=== PATIENT | female | born 1985 | race American Indian/Alaskan Native ===

== ENCOUNTER 2017-03-08 10:54 | Observation (INO) ==
[2017-03-08] MEDS ORDERED: HYDROCODONE/APAP 7.5/325MG TABLET PO ONE (11:16)
[2017-03-08] MEDS ORDERED: cefTRIAXone 1 GM VIAL IV ONE (11:20)
--- NOTE | 2017-03-08 11:52 | XRay Report ---
HISTORY: Reason for Exam:swelling, redness, edema, x 5-6 weeks FINDINGS: No fracture or dislocation are present. The bones are normally mineralized and there is no bone erosion or periosteal elevation. Tiny spur is present on the plantar surface of the calcaneus. No other degenerative change is present. There has been no significant change since 07/09/16. IMPRESSION: Normal exam Interpreted and Authenticated by: Jimmy Lucas 03/08/17
[2017-03-08 11:58] LABS: Basophils # (Auto) 0 K/mcL (0.0-0.3); Basophils % (Auto) 0.2 % (0.0-2.0); Eosinophils # (Auto) 0.4 K/mcL (0.0-0.7); Eosinophils % (Auto) 2.9 % (0.0-7.0); Granulocytes % (Auto) 82.7 % (38.0-78.0); Lymphocytes # (Auto) 1.6 K/mcL (1.5-4.8); Mean Corpuscular HGB Conc 33.7 g/dL (31.0-36.0); Mean Corpuscular Hemoglobin 28.3 pg (26.0-34.0); Monocytes # (Auto) 0.5 K/mcL (0.1-0.9); Monocytes % (Auto) 3.2 % (1.0-12.0); Platelet Count 412 K/mcL (140-440); RBC 5.15 M/mcL (4.00-5.20); Red Cell Distribution Width 14.4 % (11.5-14.5)
[2017-03-08] MEDS: 0.9 % SODIUM CHLORIDE 1,000 ML IV SCH ×3 (12:06→17:00)
[2017-03-08 12:17] LABS: ALT/SGPT 15 U/l (0-40); Albumin 4.3 gm/dL (3.2-5.2); Albumin/Globulin Ratio 1.1 (1.0-2.3); Alkaline Phosphatase 121 U/L (39-117); Blood Urea Nitrogen 7 mg/dl (6-20)
--- NOTE | 2017-03-08 12:35 | Emergency Department Note ---
General Adult HPI - General Chief complaint: Skin/Abscess/Foreign Body Stated complaint: L ankle cellulitis, L ear pain Time Seen by Provider: 03/08/17 11:12 Source: patient Mode of arrival: ambulatory - History of Present Illness HPI Narrative: 32-year-old female presents with wound to the left foot and ankle. This is been going on for over 5 weeks. She has been seeing wound care and is getting worse and wound care wanted her to sent over to the ER and evaluated here today. States that it started over a month ago with blisterlike appearances to the left ankle and leg. Denies being diabetic. Denies any trauma or injury or insect bites. Has no idea how it got there. It has progressively gotten worse over the last several weeks. However the last 5-7 days it has been much worse. She also reports fever and chills over the last 5 days. Positive nausea. No vomiting or diarrhea. She did start taking doxycycline yesterday with no improvement. States it is worse today. States it is very painful and swollen. States is continuing to spread and redness, swelling, and size of the wound. She has been going to wound care once a week since we referred her the first week of February. - Related Data Home Medications Medication Instructions Recorded Confirmed Doxycycline Monohydrate [Mondoxyne 100 mg PO BID 03/08/17 03/08/17 ] predniSONE [Prednisone] 5 mg PO DAILY 03/08/17 03/08/17 Allergies Allergy/AdvReac Type Severity Reaction Status Date / Time Latex, Natural Rubber Allergy Intermediate Hives Verified 03/08/17 11:00 Sulfa (Sulfonamide Allergy Intermediate Hives Verified 03/08/17 11:00 Antibiotics) Review of Systems All systems ED: reviewed and negative except as stated. Past Medical History - Past Medical History Medical history: Reports: other (Cellulitis the right foot) Surgical history ED: Reports: no surgical history - Social History smoking status: Never smoker Alcohol use: Reports: Rarely Drug use: Reports: none Physical Exam Limitations: no limitations General appearance: alert, in no apparent distress Head: atraumatic, normocephalic, normal inspection Eye: Present: normal appearance. Absent: conjunctival injection ENT: mucous membranes moist Chest: Present: normal inspection, symmetric chest wall rise Respiratory: Present: normal lung sounds bilaterally. Absent: respiratory distress, wheezes, accessory muscle use Cardiovascular: Present: regular rate, normal heart sounds Extremities: Present: full ROM, tenderness (Tender over the wound to the left foot and ankle. No other tenderness. No other rashes or lesions. The left foot does have significant edema compared to the right. There is also redness and warmth. Cap refill is immediate.). Absent: normal inspection (Wound to the left foot and ankle. Please see skin assessment.), calf tenderness Neurological: Present: alert, oriented X3, motor sensory deficit (Sensation intact to lower extremities bilaterally) Psychiatric: Present: normal affect, normal mood, other (She is tearful and frustrated and does not understand why it is not getting better. Also tearful and states she is tired of it getting worse and hurting) Skin: Present: warm, dry. Absent: intact (The left ankle has a 6 cm x 12 cm stage II ulcer. The redness extends 4-6 cm in all directions. Warm. Cap refill immediate. Sensation intact. Very tender. The left ankle is significantly swollen compared to the right. There are no other rashes or lesions throughout.) Course Course Narrative: Pictures of the wound were taken by wound care today and submitted to the chart. Please see pictures Vital Signs Temperature 97.4 F 03/08/17 10:55 Pulse Rate 67 03/08/17 10:55 Respiratory Rate 16 03/08/17 10:55 Blood Pressure 116/77 03/08/17 10:55 Pulse Oximetry (%) 97 03/08/17 10:55 Temperature 97.4 F 03/08/17 10:55 Pulse Rate 58 L 03/08/17 12:50 Respiratory Rate 16 03/08/17 12:50 Blood Pressure 123/77 03/08/17 12:50 Pulse Oximetry (%) 99 03/08/17 12:50 Medical Decision Making - MDM Narrative Medical decision making narrative: At [address] did speak with Dr[address] jayne marmolejo and wound care. He suggested we talk to the hospitalist as he does not feel there is anything further he can do at this point but would be happy to consult. I did speak with Dr. Lo the hospitalist on today. He is agreeable to seeking care for the patient. She will need IV antibiotics and probable admit. - Lab Data Lab results reviewed: Yes I reviewed the patient's lab results. Result diagrams: 03/08/17 11:38 03/08/17 11:38 Lab Results 03/08/17 03/08/17 03/08/17 Range/Units 11:38 11:38 11:38 WBC 14.4 H (4.5-11.0) K/mcL RBC 5.15 (4.00-5.20) M/mcL Hgb 14.6 (12.0-15.0) g/dL Hct 43.3 (36.0-48.0) % MCV 84.0 (80.0-100.0) fL MCH 28.3 (26.0-34.0) pg MCHC 33.7 (31.0-36.0) g/dL RDW 14.4 (11.5-14.5) % Plt Count 412 (140-440) K/mcL MPV 7.1 L (7.4-10.4) fL Gran % 82.7 H (38.0-78.0) % Lymph % (Auto) 11.0 L (15.5-49.0) % Russell % (Auto) 3.2 (1.0-12.0) % Eos % (Auto) 2.9 (0.0-7.0) % Baso % (Auto) 0.2 (0.0-2.0) % Gran # 11.9 H (1.8-8.0) K/mcL Lymph # (Auto) 1.6 (1.5-4.8) K/mcL Russell # (Auto) 0.5 (0.1-0.9) K/mcL Eos # (Auto) 0.4 (0.0-0.7) K/mcL Baso # (Auto) 0 (0.0-0.3) K/mcL VBG Lactic Acid 0.8 (0.5-2.2) mmol/L Sodium 138 (133-145) mmol/L Potassium 4.0 (3.3-5.1) mmol/L Chloride 101 (96-108) mmol/L Carbon Dioxide 24 (22-30) mmol/L Anion Gap 13.0 (8-16) BUN 7 (6-20) mg/dl Creatinine 0.8 (0.6-1.1) mg/dl GFR Calculation 98 Glucose 90 (70-105) mg/dL Calcium 9.0 (8.6-10.4) mg/dl Total Bilirubin 0.4 (0.0-1.0) mg/dL AST 21 (0-37) U/l ALT 15 (0-40) U/l Alkaline Phosphatase 121 H (39-117) U/L Total Protein 8.2 (5.9-8.4) gm/dL Albumin 4.3 (3.2-5.2) gm/dL Globulin 3.9 H (2.2-3.7) gm/dL Albumin/Globulin Ratio 1.1 (1.0-2.3) - Radiology Data Radiology results reviewed: Yes I reviewed the patient's radiology results. Disposition Pt seen by KILN BURNER/PA only: Yes Clinical Impression: Wound infection, Cellulitis Disposition: Xfer As Inpt ([facility]) Condition: Fair Referrals: Kaelyn Du [Primary Care Provider] - Uvaldo Mak MD [Physician] - Time of Disposition: 13:20
[2017-03-08] MEDS ORDERED: PIPERACILLIN SODIUM/TAZOBACTAM 3.375 GM in DEXTROSE 5% IN WATER 50 ML IV ONE (13:02)
[2017-03-08] MEDS ORDERED: PIPERACILLIN SODIUM/TAZOBACTAM 3.375 GM VIAL IV ONE (13:17)
[2017-03-08] MEDS ORDERED: DEXTROSE 5% IN WATER 100 ML IV ONE (13:19)
[2017-03-08] MEDS ORDERED: VANCOMYCIN 1,500 MG in 0.9 % SODIUM CHLORIDE 500 ML IV ONE (13:50)
[2017-03-08] MEDS: VANCOMYCIN PER PHARMACY IV ONE ×2 (14:15)
--- NOTE | 2017-03-08 14:34 | History and Physical Report ---
DATE OF ADMISSION: 03/08/2017 REASON FOR ADMISSION: Left foot and ankle swelling, pain, nonhealing ulcer, discharge. HISTORY OF CHIEF COMPLAINT: The patient is a 32-year-old who comes in to [facility] ER after being directed from the wound care service for what started as a blister on the lateral aspect of left ankle, likely secondary to a shoe blister and subsequently started spreading in all directions. She was seen at the wound care clinic and subsequently dressings did not improve and kept progressing. She was started on doxycycline yesterday. However, due to increasing leg pain, swelling, redness, and fever she came to the ER. Initial white count was over 14,000. However, foot x-ray did not show evidence of osteomyelitis. The patient was started on vancomycin and Rocephin, subsequently Hospitalist Service was consulted. At the time of evaluation, the patient is alert and oriented. She was able to provide answers to most of the questions. She denies recent trauma except for foot shoe blister around [place], a month ago. 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 She denies STD. She denies substance abuse or injection drug use. She denies smoking. She further denies chest palpitation, headache, joint pain, rash, arthralgia, groin pain, or dysuria. REVIEW OF SYSTEMS: A ten-point review of system was performed and negative except the ones discussed above. PAST MEDICAL HISTORY: None significant. CURRENT MEDICATIONS: Doxycycline 100 mg b.i.d. ALLERGIES: 1. LATEX. 2. SULFA. SOCIAL HISTORY: She is , has kids. Lives at [place]. No history of smoking or alcohol or substance abuse. FAMILY HISTORY: None relevant to presenting symptoms. PHYSICAL EXAMINATION: GENERAL: The patient is nondistressed, alert and oriented. VITAL SIGNS: Blood pressure 116/77, respiration rate 16, temperature 97.4, pulse 67, sats 97% on room air. HEENT: Pupils symmetric. Oral cavity is dry. No ear or nose discharge. Head is normocephalic and atraumatic. NECK: No lymphadenopathy. CHEST: S1, S2, regular rhythm. Chest clear to auscultation bilaterally. ABDOMEN: Soft and nontender. LOWER EXTREMITIES: Left lower extremity lateral aspect on lateral malleolus extensive ulceration along with necrotic tissue, purulent discharge, but no fluctuance extending 4 cm above the lateral malleolus and then 3 cm on the dorsum of the foot. Otherwise skin has no suspicious lesion. Normal range of motion of the joints with no joint swelling or erythema. PSYCH: Alert and cooperative, mild anxiety. NEUROLOGIC: Nonfocal, moving all four extremities. LABS AND IMAGING: White count 14.4, hemoglobin 14.6, platelets 412. Lactic acid 0.8. Sodium 138, potassium 4, creatinine 0.8, BUN 7. LFTs unremarkable. X-ray left ankle/foot: Negative, normal exam. ASSESSMENT AND PLAN: A 32- year-old admitted with left leg cellulitis involving ankle and dorsum. 1. Left ankle cellulitis. Start antibiotic coverage on Zosyn and vancomycin given history of MRSA. Wound cultures, blood cultures pending. Continue NSAID and antipyretics for inflammation of left leg. 2. Nonhealing ulcer, unclear etiology. However, likely secondary to superinfection after shoe blister. Continue wound care. Consult wound physician, Dr. Mak. PLAN: 1. Admit as observation. 2. Antibiotic coverage. 3. Continue wound care. 4. Schedule outpatient IV antibiotics for at least 10 days to ensure adequate healing, along with wound care followup as an outpatient. AA:beck Job ID: [id number] Doc ID: [id number] Sonu Shields MD
[2017-03-08] MEDS ORDERED: VANCOMYCIN PER PHARMACY IV SCH (15:41)
[2017-03-08] MEDS ORDERED: traZODone HCL 50 MG TABLET PO PRN (15:41)
[2017-03-08] MEDS ORDERED: POTASSIUM CHLORIDE 20 MEQ PACKET PO PRN (15:41)
[2017-03-08] MEDS ORDERED: ACETAMINOPHEN 1,000 MG/100 ML BOTTLE IV PRN (15:41)
[2017-03-08] MEDS ORDERED: ONDANSETRON 4 MG/2 ML VIAL IV PRN (15:41)
[2017-03-08] MEDS ORDERED: MAGNESIUM SULFATE 2 GM/50 ML BAG IV PRN (15:41)
[2017-03-08] MEDS: 0.9 % SODIUM CHLORIDE 10 ML SYRINGE IV SCH ×2 (15:43→20:45)
[2017-03-08] MEDS: PIPERACILLIN SODIUM/TAZOBACTAM 3.375 GM in DEXTROSE 5% IN WATER 50 ML IV SCH ×2 (18:34→23:27)
[2017-03-08] MEDS: DOCUSATE SODIUM 100 MG CAPSULE PO SCH (20:45)
[2017-03-08] MEDS: SENNOSIDES/DOCUSATE SODIUM 1 TAB TABLET PO SCH (20:45)
[2017-03-08] MEDS: HEPARIN 5,000 UNIT/ML VIAL SQ SCH (20:45)
[2017-03-08] MEDS: ACETAMINOPHEN 325 MG TABLET PO PRN (23:27)
[2017-03-08] MEDS: VANCOMYCIN 1,500 MG in 0.9 % SODIUM CHLORIDE 500 ML IV SCH (23:28)
[2017-03-09] MEDS: ACETAMINOPHEN 325 MG TABLET PO PRN ×4 (04:34→21:54)
[2017-03-09] MEDS: PIPERACILLIN SODIUM/TAZOBACTAM 3.375 GM in DEXTROSE 5% IN WATER 50 ML IV SCH ×3 (05:42→18:00)
[2017-03-09] MEDS: 0.9 % SODIUM CHLORIDE 10 ML SYRINGE IV SCH ×4 (05:43→21:01)
[2017-03-09 06:32] LABS: Mean Cell Volume 85.2 fL (80.0-100.0); Mean Corpuscular HGB Conc 33.7 g/dL (31.0-36.0); Mean Corpuscular Hemoglobin 28.7 pg (26.0-34.0); Platelet Count 366 K/mcL (140-440); RBC 4.27 M/mcL (4.00-5.20); Red Cell Distribution Width 13.9 % (11.5-14.5)
[2017-03-09 07:28] LABS: ALT/SGPT 12 U/l (0-40); Albumin 3.5 gm/dL (3.2-5.2); Albumin/Globulin Ratio 1.2 (1.0-2.3); Alkaline Phosphatase 101 U/L (39-117); Band Neutrophils % 1 % (0-10); Bilirubin,Direct < 0.2 mg/dL (0.0-0.3); Blood Urea Nitrogen 6 mg/dl (6-20); Eosinophils % (Manual) 4 % (0-7); Gamma Glutamyl Transpeptidase 23 U/L (5-36); Lymphocytes % 38 % (15-49); Monocytes % (Manual) 5 % (1-12); Platelet Estimate NORMAL (NORMAL); RBC Morphology NORMAL (NORMAL); Segmented Neutrophils % 52 % (38-78); Uric Acid 2.9 mg/dL (2.5-8.0)
--- NOTE | 2017-03-09 08:03 | Internal Med Progress Note ---
Medical - PN: Subj Patient information: Note initiated : 03/09/17 at 8:01 am Service Date, if different from initiated Date: [] Patient: Anna Lizarraga 32 y/o F admitted on 03/08/17 for L ankle cellulitis, L ear pain. Chief Complaint: [] Interval history: 03/08-Patient admitted with left ankle nonhealing ulcer and failed outpatient treatment with cellulitis spreading up to upper leg. White count 14.4. Worsening over the last 1 month. Started on broad antibiotic coverage. Admitted as observation. -clinically improving with downtrending white count and pain along with fever. Continue antibiotic coverage.Gram stain was revealed gram-positive cocci in pairs and chains. No overnight fever chills or concerns per nursing staff. Stable labs and hemodynamics. on Zosyn and vancomycin. Consult wound care - Constitutional Vitals: Vital Signs Temp Pulse Resp BP Pulse Ox 98.2 F 53 L 16 114/76 95 03/09/17 07:13 03/09/17 04:00 03/09/17 07:13 03/09/17 07:13 03/09/17 07:13 Period Temp Pulse Resp BP Sys/Chaudhry Pulse Ox Last 24 Hr 97.4 F-98.2 F 53-78 14-18 102-123/52-77 95-99 Intake and Output 03/08/17 03/09/17 03/09/17 21:59 05:59 13:59 Intake Total 2069 / 0 1704 / 1704 Output Total 450 / 450 1150 / 1150 Balance 1620 / 1620 554 / 554 Weight 199 lb 6.4 oz Intake & Output: Intake & Output 03/08/17 03/09/17 03/09/17 21:59 05:59 13:59 Intake Total 0 / 0 1704 / 1704 Output Total 450 / 450 1150 / 1150 Balance 1620 / 1620 554 / 554 Weight 199 lb 6.4 oz Intake: IV 650 / 650 1064 / 1064 Sodium Chloride 0.9% 1,000 ml @ 514 / 514 50 mls/hr IV .Q20H [facility] Rx#: [id number] Zosyn 3.375 gm In Dextrose 5% 50 / 50 50 / 50 in Water 50 ml @ 100 mls/hr IV Q6H [facility] Rx#:[id number] Vancomycin 1,500 mg In Sodium 500 / 500 500 / 500 Chloride 0.9% 500 ml @ 333.3 mls/hr IV Q12H [facility] Rx#: [id number] Oral 1420 / 1420 640 / 640 Output: Void Amount 450 / 450 1150 / 1150 Other: Meal Dinner Percent of Meal Consumed 100% Feeding Ability Independent # Voids 1 # Bowel Movements 1 General appearance: cooperative, no acute distress Exam: esting comfortably nonlabored breathing Nondistended abdomen Wound dressing left ankle Lower extremity lymphedema/erythema left side much improved Medical - PN: Obj Da - Labs CBC & Chem 7: 03/09/17 04:52 03/09/17 04:52 Labs: Abnormal Lab Results 03/09/17 03/09/17 03/08/17 04:52 04:52 11:49 WBC MPV 7.1 L Gran % Lymph % (Auto) Gran # ESR Calcium 8.0 L Alkaline Phosphatase C-Reactive Protein 2.0 H Globulin 03/08/17 03/08/17 03/08/17 11:49 11:38 11:38 WBC 14.4 H MPV 7.1 L Gran % 82.7 H Lymph % (Auto) 11.0 L Gran # 11.9 H ESR 32 H Calcium Alkaline Phosphatase 121 H C-Reactive Protein Globulin 3.9 H Meds: Medications Acetaminophen (Tylenol) 650 mg PO Q4-6HP PRN PRN Reason: PAIN/FEVER > 101 Last Admin: 03/09/17 04:34 Dose: 650 mg Docusate Sodium (Colace) 100 mg PO BID [facility] Last Admin: 03/08/17 20:45 Dose: 100 mg Heparin Sodium (Porcine) (Heparin) 5,000 unit SQ Q12 [facility] Last Admin: 03/08/17 20:45 Dose: 5,000 unit Magnesium Sulfate (Magnesium Sulfate) 2 gm in 50 mls @ 50 mls/hr IV UD PRN PRN Reason: MG = or < 1.7 Sodium Chloride (Sodium Chloride 0.9%) 1,000 mls @ 50 mls/hr IV .Q20H [facility] Stop: 03/11/17 03:40 Last Infusion: 03/09/17 05:43 Dose: 0 mls/hr Acetaminophen (Ofirmev) 1,000 mg in 100 mls @ 200 mls/hr IV Q6HP PRN PRN Reason: PAIN/FEVER > 101 Last Infusion: 03/08/17 18:15 Dose: Infused Piperacillin Sod/Tazobactam (Sod 3.375 gm/ Dextrose) 50 mls @ 100 mls/hr IV Q6H [facility] Last Admin: 03/09/17 05:42 Dose: 100 mls/hr Vancomycin HCl 1,500 mg/ (Sodium Chloride) 500 mls @ 333.3 mls/hr IV Q12H [facility] Last Infusion: 03/09/17 02:45 Dose: Infused Iron Carb/Multivit/[place]/Folic Acid (Multivitamin W/Minerals) 1 tab PO DAILY [facility] Ondansetron HCl (Zofran) 4 mg IV Q4-6HP PRN PRN Reason: Nausea And Vomiting Potassium Chloride (Klor-Con) 40 meq PO DAILYP PRN PRN Reason: K+ < 3.5 Senna/Docusate Sodium (Senna Plus Tablet) 1 tab PO HS [facility] Last Admin: 03/08/17 20:45 Dose: 1 tab Sodium Chloride (Saline Flush) 10 ml IV Q8 [facility] Last Admin: 03/09/17 05:43 Dose: Not Given Trazodone HCl (Desyrel) 50 mg PO HSP PRN PRN Reason: Insomnia Vancomycin HCl (Vancomycin Per Pharmacy) 1 order IV UD [facility] Medical - PN: A/P - Time Spent With Patient Total time spent is greater than 50% in coordination of care (as documented) at patient's floor/unit and/or counseling patient: 25 - 35 minutes - Narrative A/P Narrative: [id number] with left ankle nonhealing ulcer/cellulitiswith associated fever or leukocytosis and early sepsis * left lower extremity cellulitis/nonhealing ulcer-broad antibiotic coverage including Zosyn and vancomycin. Cultures revealed gram-positive cocci.failed outpatient treatment. consult wound care * pain management on as needed Tylenol * DVT prophylaxis on heparin plan * Wound care * Antibiotics * possible discharge in 24 hours if clinically improved * schedule outpatient antibiotics for additional 10 days along with outpatient wound care/dressings on discharge
[2017-03-09] MEDS: DOCUSATE SODIUM 100 MG CAPSULE PO SCH ×2 (09:06→21:01)
[2017-03-09] MEDS: HEPARIN 5,000 UNIT/ML VIAL SQ SCH ×2 (09:06→21:01)
[2017-03-09] MEDS: MULTIVIT,THER IRON,CA,FA & MIN 1 TABLET PO SCH (09:06)
[2017-03-09] MEDS: VANCOMYCIN 1,500 MG in 0.9 % SODIUM CHLORIDE 500 ML IV SCH ×2 (09:07→21:02)
[2017-03-09] MEDS: 0.9 % SODIUM CHLORIDE 1,000 ML IV SCH (11:40)
--- NOTE | 2017-03-09 17:28 | General Surgery Consult Note ---
History of Present Illness Patient information: Note initiated : 03/09/17 at 5:18 pm Service Date, if different from initiated Date: [] Patient: Anna Lizarraga 32 y/o F admitted on 03/08/17 for Left Ankle Cellulitis , Left Ear Pain. Chief Complaint: [] Consult date: 03/09/17 Requesting physician: Sonu Shields (Wound Care. Ulcer Left lower medial foot) History of present illness: I saw the chart and examined patient along with nurse and patient's mother in the room. I had referred her to the ER from wound care clinic due to deterioration of left lower foot and ankle skin lesion. During this visit there was exfoliation of skin, blisters ruptured and clinical signs of evolving cellulitis CSSSI, possibility of SEPSIS and SIRS. This started as contact dermatitis several weeks or months go, when she initially presented with dermatitis, skin changes discoloration without blisters. She was treated conservatively and recommended a dermatology consult for elucidating etiology and opinion about treatment options. This has NOT happened as yet. Referral was made to Dr. Vo, [facility] in [place], [place]. Yesterday, I called Dr. Vo' office and spoke with his nurse. Waiting to speak with Dr. Vo. In the interim, I referred her to ER for immediate care, work up and IV antibiotics and local wound care. Medications and Allergies Home Medications Medication Instructions Recorded Confirmed Type Doxycycline Monohydrate [Mondoxyne 100 mg PO BID 03/08/17 03/08/17 History Nl] predniSONE [Prednisone] 5 mg PO DAILY 03/08/17 03/08/17 History Allergies Allergy/AdvReac Type Severity Reaction Status Date / Time Latex, Natural Rubber Allergy Intermediate Hives Verified 03/08/17 11:00 nitrofurantoin Allergy Intermediate Hives Verified 03/08/17 20:16 [From Macrobid] Sulfa (Sulfonamide Allergy Intermediate Hives Verified 03/08/17 11:00 Antibiotics) Exam Temp Pulse Resp BP Pulse Ox 98.9 F 53 L 16 112/68 96 03/09/17 15:56 03/09/17 04:00 03/09/17 15:56 03/09/17 15:56 03/09/17 15:56 - General physical appearance well developed, well nourished, no distress, moderate pain - Eyes PERRL, normal ocular movement - ENT normal pinna, normal nares, normal mucosa, no congestion - Head Head exam IM: Present: atraumatic, normal inspection, normocephalic - Neck no masses, no bruits, trachea midline, no venous distension - Cardiovascular Cardiovascular exam IM: Present: normal rate and rhythm - Respiratory normal expansion, normal respiratory effort, clear to auscultation - Abdomen Abdomen: Present: soft, non tender, bowel sounds - Integumentary Present: other (LEFT lower medial heel and ankle skin discoloration, superficial ulceration, satellite blisters, periwound dermatitis and spreading erythema, streaks lymphangitis, vasculitis. Severe pain and tender to touch, NO ODOR, Drainage mainly serous,without lucila purulence.) - Neurologic Present: normal coordination, normal sensation - Musculoskeletal Present: normal gait - Psychiatric Present: oriented to time, oriented to person, oriented to place, speech is normal, memory intact, other (Situational anxiety, frustration and worried about no signs of improvement. ) Results - Labs 03/09/17 04:52 03/09/17 04:52 Abnormal lab results 03/09/17 03/09/17 Range/Units 04:52 04:52 MPV 7.1 L (7.4-10.4) fL Calcium 8.0 L (8.6-10.4) mg/dl Diabetes panel 03/09/17 Range/Units 04:52 Sodium 141 (133-145) mmol/L Potassium 3.9 (3.3-5.1) mmol/L Chloride 106 (96-108) mmol/L Carbon Dioxide 25 (22-30) mmol/L BUN 6 (6-20) mg/dl Creatinine 0.8 (0.6-1.1) mg/dl Glucose 83 (70-105) mg/dL Calcium 8.0 L (8.6-10.4) mg/dl AST 14 (0-37) U/l ALT 12 (0-40) U/l Alkaline Phosphatase 101 (39-117) U/L Total Protein 6.4 (5.9-8.4) gm/dL Albumin 3.5 (3.2-5.2) gm/dL Triglycerides 98 (<150) mg/dl Calcium panel 03/09/17 Range/Units 04:52 Calcium 8.0 L (8.6-10.4) mg/dl Phosphorus 3.4 (2.7-4.5) mg/dL Albumin 3.5 (3.2-5.2) gm/dL Pituitary panel 03/09/17 Range/Units 04:52 Sodium 141 (133-145) mmol/L Potassium 3.9 (3.3-5.1) mmol/L Chloride 106 (96-108) mmol/L Carbon Dioxide 25 (22-30) mmol/L BUN 6 (6-20) mg/dl Creatinine 0.8 (0.6-1.1) mg/dl Glucose 83 (70-105) mg/dL Calcium 8.0 L (8.6-10.4) mg/dl Adrenal panel 03/09/17 Range/Units 04:52 Sodium 141 (133-145) mmol/L Potassium 3.9 (3.3-5.1) mmol/L Chloride 106 (96-108) mmol/L Carbon Dioxide 25 (22-30) mmol/L BUN 6 (6-20) mg/dl Creatinine 0.8 (0.6-1.1) mg/dl Glucose 83 (70-105) mg/dL Calcium 8.0 L (8.6-10.4) mg/dl Total Bilirubin 0.3 (0.0-1.0) mg/dL AST 14 (0-37) U/l ALT 12 (0-40) U/l Alkaline Phosphatase 101 (39-117) U/L Total Protein 6.4 (5.9-8.4) gm/dL Albumin 3.5 (3.2-5.2) gm/dL All other labs normal. Assessment and Plan (1) Sepsis affecting skin Status: Acute Priority: High Comment: CSSSI, Sepsis with PAIN and spreading infection. Started on IV antibiotics and pain meds. Wound cultures GPC pairs and chains Beta hemolytic strep. Blood cultures negative. X Ray Left foot and ankle ; Negative for bone abnormalities , gas in tissue planes. Plan: For now, IV antibitics, MONITOR wound status and make recommendation as condition evolves.
[2017-03-09] MEDS: SENNOSIDES/DOCUSATE SODIUM 1 TAB TABLET PO SCH (21:01)
[2017-03-10] MEDS: PIPERACILLIN SODIUM/TAZOBACTAM 3.375 GM in DEXTROSE 5% IN WATER 50 ML IV SCH ×3 (00:19→13:16)
[2017-03-10] MEDS: 0.9 % SODIUM CHLORIDE 1,000 ML IV SCH (03:26)
[2017-03-10] MEDS: 0.9 % SODIUM CHLORIDE 10 ML SYRINGE IV SCH ×3 (06:05→13:17)
[2017-03-10 06:26] LABS: Mean Cell Volume 85.5 fL (80.0-100.0); Mean Corpuscular HGB Conc 33.7 g/dL (31.0-36.0); Mean Corpuscular Hemoglobin 28.8 pg (26.0-34.0); Platelet Count 377 K/mcL (140-440); RBC 4.35 M/mcL (4.00-5.20); Red Cell Distribution Width 14.3 % (11.5-14.5)
[2017-03-10 07:03] LABS: ALT/SGPT 12 U/l (0-40); Albumin 3.8 gm/dL (3.2-5.2); Albumin/Globulin Ratio 1.3 (1.0-2.3); Alkaline Phosphatase 92 U/L (39-117); Bilirubin,Direct < 0.2 mg/dL (0.0-0.3); Blood Urea Nitrogen 5 mg/dl (6-20); Gamma Glutamyl Transpeptidase 23 U/L (5-36); Uric Acid 2.4 mg/dL (2.5-8.0)
[2017-03-10 08:33] LABS: Eosinophils % (Manual) 8 % (0-7); Lymphocytes % 33 % (15-49); Monocytes % (Manual) 4 % (1-12); Platelet Estimate NORMAL (NORMAL); RBC Morphology NORMAL (NORMAL); Segmented Neutrophils % 49 % (38-78)
[2017-03-10] MEDS: MULTIVIT,THER IRON,CA,FA & MIN 1 TABLET PO SCH (09:07)
[2017-03-10] MEDS: DOCUSATE SODIUM 100 MG CAPSULE PO SCH (09:07)
[2017-03-10] MEDS: HEPARIN 5,000 UNIT/ML VIAL SQ SCH (09:13)
--- NOTE | 2017-03-10 09:24 | General Surgery Progress Note ---
Subjective Patient reports: no new complaints, feels better, pain is less Narrative: Note initiated : 03/10/17 at 9:22 am Service Date, if different from initiated Date: [] Patient: Anna Lizarraga 32 y/o F admitted on 03/08/17 for Left Ankle Cellulitis , Left Ear Pain. Chief Complaint: [] I saw patient for rounds and examined her wound. Usha DUVALcare giver IP nurse, Albin RN and patient's were present in the room. Discussed her progress and plan of care with all and with SIMIN Rai CM. Objective Temp Pulse Resp BP Pulse Ox 97.4 F 55 L 16 118/72 94 03/10/17 03:54 03/10/17 03:54 03/10/17 07:17 03/10/17 07:17 03/10/17 07:17 AVSS. Less anxious. Afebrile. No changes in ALEA. L/E : Wound is drying up and cellulitis inflammatory changes are gradually improving. Labs. WBC normal today. Blood c/s Negative Wound c/s B hemolytic strep AND GPC in pairs, cluster / chain NOT ABLE TO OBTAIN DERMATOLOGY OR ID input during this hospitalization. - Additional Data Intake & Output - Last 24 hours: Intake & Output 03/08/17 03/09/17 03/10/17 03/11/17 05:59 05:59 05:59 05:59 Intake Total 3774 / 3774 3866 / 3866 50 / 50 Output Total 1600 / 1600 2750 / 2750 400 / 400 Balance 2174 / 2174 1116 / 1116 -350 / -350 Weight 199 lb 6.4 oz 199 lb 4.8 oz - Labs 03/10/17 05:00 03/10/17 05:00 Diabetes panel 03/10/17 Range/Units 05:00 Sodium 142 (133-145) mmol/L Potassium 3.4 (3.3-5.1) mmol/L Chloride 107 (96-108) mmol/L Carbon Dioxide 22 (22-30) mmol/L BUN 5 L (6-20) mg/dl Creatinine 0.8 (0.6-1.1) mg/dl Glucose 81 (70-105) mg/dL Calcium 8.2 L (8.6-10.4) mg/dl AST 14 (0-37) U/l ALT 12 (0-40) U/l Alkaline Phosphatase 92 (39-117) U/L Total Protein 6.7 (5.9-8.4) gm/dL Albumin 3.8 (3.2-5.2) gm/dL Triglycerides 127 (<150) mg/dl Calcium panel 03/10/17 Range/Units 05:00 Calcium 8.2 L (8.6-10.4) mg/dl Phosphorus 3.8 (2.7-4.5) mg/dL Albumin 3.8 (3.2-5.2) gm/dL Pituitary panel 03/10/17 Range/Units 05:00 Sodium 142 (133-145) mmol/L Potassium 3.4 (3.3-5.1) mmol/L Chloride 107 (96-108) mmol/L Carbon Dioxide 22 (22-30) mmol/L BUN 5 L (6-20) mg/dl Creatinine 0.8 (0.6-1.1) mg/dl Glucose 81 (70-105) mg/dL Calcium 8.2 L (8.6-10.4) mg/dl Adrenal panel 03/10/17 Range/Units 05:00 Sodium 142 (133-145) mmol/L Potassium 3.4 (3.3-5.1) mmol/L Chloride 107 (96-108) mmol/L Carbon Dioxide 22 (22-30) mmol/L BUN 5 L (6-20) mg/dl Creatinine 0.8 (0.6-1.1) mg/dl Glucose 81 (70-105) mg/dL Calcium 8.2 L (8.6-10.4) mg/dl Total Bilirubin 0.3 (0.0-1.0) mg/dL AST 14 (0-37) U/l ALT 12 (0-40) U/l Alkaline Phosphatase 92 (39-117) U/L Total Protein 6.7 (5.9-8.4) gm/dL Albumin 3.8 (3.2-5.2) gm/dL Assessment and Plan (1) Sepsis affecting skin Problem details: CSSSI, Sepsis with PAIN and spreading infection. Started on IV antibiotics and pain meds. Wound cultures GPC pairs and chains Beta hemolytic strep. Blood cultures negative. X Ray Left foot and ankle ; Negative for bone abnormalities , gas in tissue planes. Plan: For now, IV antibitics, MONITOR wound status and make recommendation as condition evolves. Status: Acute Current Visit: Yes - Narrative A/P Narrative: Assessment: SEPSIS likely due to CSSSI. RECURRING problems. Superimposed ACUTE exacerbation with staph, strep spreading inflammatory and infective changes. Patient needs HIGHER level of care. ?? [facility]. in [facility] Plan: See wound care orders as discussed with Wound care nurse. RECOMMEND: OK TO D/C OR TRANSFER ON THE FOLLOWING MEDICATIONS. Orbactiv 1200 mg IV single dose over 3 hours. May D/C PICC line after this medication is given. Zyvox 600 mg PO q 12 hrly for 30 tabs. Mupirocin or Bactroban creme daily to skin lesion site and dressings as ordered. Patient instructed to request [facility] of accepting facility to forward their notes to upon discharge to Wound Center at [facility]. - Time Spent With Patient Total time spent is greater than 50% in coordination of care (as documented) at patient's floor/unit and/or counseling patient: 25 - 35 minutes
[2017-03-10] MEDS: ACETAMINOPHEN 325 MG TABLET PO PRN (10:38)
[2017-03-10] MEDS: VANCOMYCIN 1,500 MG in 0.9 % SODIUM CHLORIDE 500 ML IV SCH (10:38)
--- NOTE | 2017-03-10 16:13 | Discharge Summary ---
Medical - DS: Prov Patient information: Note initiated : 03/10/17 at 4:10 pm Service Date, if different from initiated Date: [] Patient: Anna Lizarraga 32 y/o F admitted on 03/08/17 for Left Ankle Cellulitis , Left Ear Pain. Date of admission: 03/08/17 15:25 Discharge date: 03/10/17 Primary care physician: Kaelyn Du Admitting clinician: Sonu Shields Consults: 03/09/17 08:04 Consult to Physician [CONS] Routine Comment: Consulting Provider: Uvaldo Mak Reason For Exam: Physician to Consult Discharging clinician: Marika Garcia Medical - DS: Meds - Discharge Medications Prescriptions: Mupirocin Crm 2% [Bactroban Crm 2%] 1 gm TOPICAL DAILY #1 tube Oritavancin Diphosphate [Orbactiv] 1,200 mg IV ONCE #3 vial Active and Home Medications: Home Medications Doxycycline Monohydrate [Mondoxyne Nl] 100 mg PO BID 03/08/17 [History Confirmed 03/08/17 Last Taken 03/08/17 09:00] predniSONE [Prednisone] 5 mg PO DAILY 03/08/17 [History Confirmed 03/08/17 Last Taken 03/08/17 09:00] Medical - DS: Hosp Hospital course: Ms. Lizarraga is a 32 year old F 03/08-Patient admitted with left ankle nonhealing ulcer and failed outpatient treatment with cellulitis spreading up to upper leg. White count 14.4. Worsening over the last 1 month. Started on broad antibiotic coverage. Admitted as observation. 03/09-clinically improving with downtrending white count and pain along with fever. Continue antibiotic coverage.Gram stain was revealed gram-positive cocci in pairs and chains. No overnight fever chills or concerns per nursing staff. Stable labs and hemodynamics. on Zosyn and vancomycin. Consult wound care. 03/10-continues to improve. Wound cultures positive for Group A Strep. Blood cultures remained negative. Plain films negative for osteomyelitis or gas in the tissues. Attempts made for transfer to [facility], but was not covered by insurance. Alternative plan to use oritavancin and Zyvox put in place with wound care at her local clinic. Discharge diagnosis: Cellulitis and wound of left medial malleolus Medical - DS: Exam - Constitutional Vitals: Vital Signs Temp Pulse Resp BP Pulse Ox 03/10/17 12:00 98.1 F 16 108/68 94 03/10/17 07:17 16 118/72 94 03/10/17 03:54 97.4 F 55 L 16 116/60 97 03/10/17 00:00 97.4 F 50 L 16 106/60 97 03/09/17 20:00 98.4 F 59 L 18 112/58 97 Intake and Output 03/10/17 03/10/17 03/10/17 05:59 13:59 21:59 Intake Total 1530 / 1530 550 / 550 Output Total 500 / 500 400 / 400 Balance 1030 / 1030 150 / 150 Intake: IV 550 / 550 550 / 550 Zosyn 3.375 gm In Dextrose 5% 50 / 50 50 / 50 in Water 50 ml @ 100 mls/hr IV Q6H NAVEEN Rx#:[id number] Vancomycin 1,500 mg In Sodium 500 / 500 500 / 500 Chloride 0.9% 500 ml @ 333.3 mls/hr IV Q12H NAVEEN Rx#: [id number] Oral 980 / 980 Output: Void Amount 500 / 500 400 / 400 Other: # Voids 1 Additional comments: General: No acute distress Chest: Clear Cardiovascular: Regular, no murmur Abdomen: Soft, nontender Musculoskeletal: Left ankle bandaged. Wound exam as per Dr. Holly's note Medical - DS: Data Labs on day of discharge: Labs from last 24 hours 03/10/17 03/10/17 03/10/17 08:10 05:00 05:00 WBC 7.8 RBC 4.35 Hgb 12.5 Hct 37.2 MCV 85.5 MCH 28.8 MCHC 33.7 RDW 14.3 Plt Count 377 MPV 7.2 L Total Counted 100 Seg Neutrophils % 49 Band Neutrophils % Not Reportable Lymphocytes % 33 Monocytes % (Manual) 4 Eosinophils % (Manual) 8 H Reactive Lymphocytes 6 H Platelet Estimate Normal RBC Morphology Normal Sodium 142 Potassium 3.4 Chloride 107 Carbon Dioxide 22 Anion Gap 13.0 BUN 5 L Creatinine 0.8 GFR Calculation 98 Glucose 81 Uric Acid 2.4 L Calcium 8.2 L Phosphorus 3.8 Magnesium 2.0 Total Bilirubin 0.3 Direct Bilirubin < 0.2 GGT 23 AST 14 ALT 12 Alkaline Phosphatase 92 Lactate Dehydrogenase 116 Total Protein 6.7 Albumin 3.8 Globulin 2.9 Albumin/Globulin Ratio 1.3 Triglycerides 127 Vancomycin Trough 11.0 Preliminary micro results at discharge 03/08/17 11:58 Blood Culture - Preliminary Blood 03/08/17 11:49 Blood Culture - Preliminary Blood Microbiology 03/08/17 11:58 Blood Culture - Preliminary Blood 03/08/17 11:49 Blood Culture - Preliminary Blood 03/08/17 13:10 Gram Stain - Final Ankle - Left Wound Culture - Final Strep pyogenes (grp a) - Impressions Left foot XR FINDINGS: No fracture or dislocation are present. The bones are normally mineralized and there is no bone erosion or periosteal elevation. Tiny spur is present on the plantar surface of the calcaneus. No other degenerative change is present. There has been no significant change since 07/09/16. IMPRESSION: Normal exam Medical - DS: A/P - Patient/Caregiver Discharge Instructions Activity: increase activity as tolerated Diet: Regular Diet Additional Instructions: Have dressings on wound changed daily. Prescriptions: Linezolid [Zyvox] 600 mg PO Q12 #30 tab Mupirocin Crm 2% [Bactroban Crm 2%] 1 gm TOPICAL DAILY #1 tube Oritavancin Diphosphate [Orbactiv] 1,200 mg IV ONCE #3 vial - Follow up Plan Follow up with: Uvaldo Mak MD [Physician] - Disposition: Home, Self-Care Prognosis: Good Rehab Potential: Good Overall status at discharge: patient is not back to baseline
[2017-03-11] MEDS ORDERED: MUPIROCIN CRM 2% 15 GM TUBE TOPICAL SCH (09:00)
== END 2017-03-10 17:30 | disposition home or self-care (01) ==
LOC: MEDSUR 10:54 → ED 10:54 → MEDSUR 15:30
PROVIDERS: ADMIT Internal Medicine; ATTEND Internal Medicine